=== PATIENT | female | born 1955 | race Caucasian/White ===

== ENCOUNTER 2019-01-01 17:47 | Observation (INO) ==
[2019-01-01 18:32] LABS: Basophils # (auto) 0.05 K/uL (0-0.2); Basophils % (auto) 1.1 %; Eosinophils # (auto) 0.23 K/uL (0-0.5); Eosinophils % (auto) 4.9 %; Hematocrit (blood only) 43.7 % (37-47); Hemoglobin 14.5 g/dL (12.0-16.0); Immature Granulocytes # (auto) 0.01 K/uL (0.00-0.02); Immature Granulocytes % (auto) 0.2 %; Lymphocytes # (auto) 1.02 K/uL (1.2-3.4); Lymphocytes % (auto) 21.6 %; Mean Corpuscular Hgb Conc 33.2 g/dL (32-36); Mean Corpuscular Volume 91.2 fL (80-100); Mean Platelet Volume 9.2 fL (7.4-10.4); Monocytes # (auto) 0.43 K/uL (0.11-0.59); Monocytes % (auto) 9.1 %; Neutrophils # (auto) 2.99 K/uL (1.4-6.5); Neutrophils % (auto) 63.1 %; Platelet Count 270 K/uL (130-400); RDW Coefficient of Variation 12.9 % (11.5-14.5); RDW Standard Deviation 43.1 fL (36.4-46.3); Red Blood Count 4.79 M/uL (4.2-5.4); White Blood Count 4.73 K/uL (4.8-10.8)
[2019-01-01 18:52] LABS: Albumin Level 3.8 gm/dl (3.4-5.0); BUN Creatinine Ratio 16.4 (10-20); Calcium 9.3 mg/dl (8.5-10.1); Creatinine Clr Calc Pharmacy 59.8 ml/min; Est GFR (African American) 79.4; Est GFR (Non-African American) 68.5
[2019-01-01 18:55] LABS: Albumin Globulin Ratio 1.1 (0.9-2); Bilirubin,Total 0.2 mg/dl (0.2-1); Globulin 3.3 gm/dl (2.5-4.0); Total Protein 7.1 gm/dl (6.4-8.2)
[2019-01-01] MEDS ORDERED: IOVERSOL 100ml IV PRN (20:53)
[2019-01-01 21:05] LABS: Appearance Urine Clear (Clear); Bacteria Urine Automated Negative (Negative); Bilirubin Urine Negative (Negative); Blood Urine Trace (Negative); Cast Urine Automated 0 /lpf (0-5); Color Urine Yellow; Glucose Urine UA Negative (Negative); Ketones Urine Negative (Negative); Leukocyte Esterase Urine Trace (Negative); Nitrite Urine Negative (Negative); Protein Urine Negative (Negative); RBC Urine Automated 0-4 /hpf (0-4); Specific Gravity Urine 1.013 (1.000-1.030); Urobilinogen Urine Negative (Negative); pH Urine 5.5 (4.5-7.5)
--- NOTE | 2019-01-01 21:19 | CT Scan Report ---
CT abd pelvis oral and IV con CT DOSE: 476.40 mGycm HISTORY: Flank pain rlq pain eval for appe TECHNIQUE: Multiaxial CT images of the abdomen and pelvis were performed following the use of intrave nous and oral contrast. A dose lowering technique was utilized adhering to the principles of ALARA. COMPARISON STUDY: None. FINDINGS: Lung bases are clear. The liver spleen and pancreas are unremarkable. Kidneys enhance unifo rmly with no evidence for hydronephrosis. Nonobstructive bowel pattern. Thickened appendix at its base at 8 mm tapering to 5 mm at its apex. Trace amount of periappendiceal infiltrative change. No evidence for abscess collection or obstructive change. Bladder is midline. Th ere are several calcified uterine fibroids. There is no free fluid within the pelvic cul-de-sac. IMPRESSION: 1. Thickened appendix at 8 mm with minimal periappendiceal infiltrative change. 2. This is highly suspect for appendicitis, with no evidence for abscess collection or obstructive ch dhruv. 3. If the appendix is not removed, endoscopic evaluation at a later date is recommended to exclude an y possibility of an underlying neoplastic appendiceal process. The above report was generated using voice recognition software. It may contain grammatical, syntax or spelling errors. Electronically signed by: Getachew Paiz M.D. 01/01/2019 9:18 PM
[2019-01-01] MEDS ORDERED: LIDOCAINE HCL 1% 20 ML VIAL ONE (22:02)
[2019-01-01] MEDS ORDERED: BACITRACIN OINT 15 GM TUBE ONE (22:02)
[2019-01-01] MEDS ORDERED: BUPIVACAINE 0.5 % 5 MG/1 ML MPF 30ML VIAL ONE (22:02)
--- NOTE | 2019-01-01 22:02 | Surgery Consultation ---
Date of Consultation January 01, 2019 Assessment & Plan (1) Acute appendicitis: pt is a 64 year-old female who presents to ER with one day history acute RLQ pain, CT scan-dx acute appendicitis, IMP: acute appendicitis Plan, I recommend to do laparoscopic appendectomy, possible open , D/W benefits, risks and alternatives of the surgery, the risks - infection, bleeding, injury bowel, IL, DVT, stroke, , pt understood, she agrees with [facility] surgery, I answered all questions, History of Present Illness History of Present Illness CC: abdominal pain HPI: pt is a 64 year -old female who presents to ER with one day history abdominal pain, with some nausea, no vomiting, the pain is located at RLQ,pt denies fever, no diarrhea, pt had CT scan at ER dx acute appendicitis. Allergies Allergy/AdvReac Type Severity Reaction Status Date / Time codeine AdvReac Severe NAUSEA & Verified 01/01/19 19:55 VOMITING Home Medications Home Medications Medication Instructions Recorded Confirmed Type Azelastine Hcl 1% 1 spray INTRANASAL BID 01/01/19 01/01/19 History albuterol sulfate [Ventolin HFA] 2 puff INHALATION Q4 PRN 01/01/19 01/01/19 History atorvastatin 10 mg PO DAILY 01/01/19 01/01/19 History dextroamphetamine-amphetamine 15 mg PO DAILY 01/01/19 01/01/19 History [Adderall] fexofenadine [Jing Allergy] 180 mg PO DAILY PRN 01/01/19 01/01/19 History lamotrigine [Lamictal] 100 mg PO DAILY 01/01/19 01/01/19 History lamotrigine [Lamictal] 200 mg PO DAILY 01/01/19 01/01/19 History levothyroxine 125 mcg PO DAILY 01/01/19 01/01/19 History mometasone-formoterol [Dulera] 2 puff INHALATION BID 01/01/19 01/01/19 History montelukast [Singulair] 10 mg PO DAILY 01/01/19 01/01/19 History venlafaxine [Effexor XR] 37.5 mg PO DAILY 01/01/19 01/01/19 History Patient History Medical History No significant past medical history Social History Feels Safe at Home: Yes Smoking Status: Never smoker Review of Systems Constitutional: as per Subjective / HPI Ear, Nose, Mouth, Throat: as per Subjective / HPI Respiratory: as per Subjective / HPI Cardiovascular: as per Subjective / HPI Gastrointestinal: as per Subjective / HPI Genitourinary: as per Subjective / HPI Integumentary: as per Subjective / HPI Neurologic: as per Subjective / HPI Psychiatric: as per Subjective / HPI Endocrine: as per Subjective / HPI hypothyroidism Allergy / Immunological: as per Subjective / HPI Physical Exam Constitutional: WD/WN, vitals as above well developed and well nourished ENMT: external ear and nose normal, oropharynx normal Neck: trachea midline, no thyromegaly Respiratory: normal respiratory effort, lungs clear to auscultation normal respiratory effort Cardiovascular: RRR, no murmur, no edema Rate/Rhythm: regular rate and regular rhythm Heart Sounds: normal S1 and normal S2 Gastrointestinal (Abdomen): soft, tenderness at RLQ, no rebound pain, BS + Musculoskeletal: no cyanosis or clubbing, extremities motor strength 5/5 Neurologic: patellar DTR's 2+ bilat, sensation intact Psychiatric: A+Ox3, euthymic affect Orientation: alert and oriented x 3 Lymphatic: no cervical or axillary lymphadenopathy Results & Data Vital Signs (Past 12 Hours) Vital Signs Temp Pulse Pulse Resp BP BP Pulse Ox 01/01/19 18:44 62 16 133/83 99 01/01/19 18:18 97 01/01/19 17:57 37.4 C 81 20 142/93 H 96 Laboratory Results Abnormal lab results 01/01/19 01/01/19 01/01/19 Range/Units 18:25 18:25 Unknown WBC 4.73 L (4.8-10.8) K/uL Lymph # (Auto) 1.02 L (1.2-3.4) K/uL AST 10 L (15-37) U/L Urine Blood Trace H (Negative) Ur Leukocyte Esterase Trace H (Negative) U Epithel Cells (Auto) 10-20 H (0-5) /lpf Diagnostic Findings CT abd pelvis oral and IV con CT DOSE: 476.40 mGycm HISTORY: Flank pain rlq pain eval for appe TECHNIQUE: Multiaxial CT images of the abdomen and pelvis were performed following the use of intravenous and oral contrast. A dose lowering technique was utilized adhering to the principles of ALARA. COMPARISON STUDY: None. FINDINGS: Lung bases are clear. The liver spleen and pancreas are unremarkable. Kidneys enhance uniformly with no evidence for hydronephrosis. Nonobstructive bowel pattern. Thickened appendix at its base at 8 mm tapering to 5 mm at its apex. Trace amount of periappendiceal infiltrative change. No evidence for abscess collection or obstructive change. Bladder is midline. There are several calcifie d uterine fibroids. There is no free fluid within the pelvic cul-de-sac. IMPRESSION: 1. Thickened appendix at 8 mm with minimal periappendiceal infiltrative change. 2. This is highly suspect for appendicitis, with no evidence for abscess collection or obstructive change. 3. If the appendix is not removed, endoscopic evaluation at a later date is recommended to exclude any possibility of an underlying neoplastic appendiceal process.
[2019-01-01] MEDS ORDERED: cefOXitin 2,000 MG/60 ML BAG IV STA (22:06)
--- NOTE | 2019-01-01 22:06 | History & Physical Bridge Note ---
Date of Service January 01, 2019 History & Physical Bridge Note I have examined the patient, reviewed the History & Physical and in the interval since the performance of the History & Physical I have noted the following changes of clinical significance: no changes noted
--- NOTE | 2019-01-01 22:19 | Anesthesiology Consultation ---
Date of Service January 01, 2019 Assessment & Plan (1) Encounter for pre-operative examination: Chart Review Chart Review: Acceptable Risk for Surgery and Patient NOT seen in Pre Admission Testing Consults Requested none ASA [id number] Proposed Anesthesia Anesthesia Type: General Risk / Benefits Reviewed With: PT / POA / Parent / Guardian, Accepts Plan and In formed Consent Obtained History Surgery Operation Date: 01/01/19 21:55 Proposed Procedures p Laparoscopic Appendectomy - Pool Asif MD Height/Weight Height: 5 ft 6 in Weight: 65.3 kg Allergies Allergy/AdvReac Type Severity Reaction Status Date / Time codeine AdvReac Severe NAUSEA & Verified 01/01/19 19:55 VOMITING Medications Home Medications Medication Instructions Recorded Confirmed Last Taken Azelastine Hcl 1% 1 spray INTRANASAL BID 01/01/19 01/01/19 Unknown albuterol sulfate [Ventolin HFA] 2 puff INHALATION Q4 PRN 01/01/19 01/01/19 Unknown atorvastatin 10 mg PO DAILY 01/01/19 01/01/19 Unknown dextroamphetamine-amphetamine 15 mg PO DAILY 01/01/19 01/01/19 Unknown [Adderall] fexofenadine [Jing Allergy] 180 mg PO DAILY PRN 01/01/19 01/01/19 Unknown lamotrigine [Lamictal] 100 mg PO DAILY 01/01/19 01/01/19 Unknown lamotrigine [Lamictal] 200 mg PO DAILY 01/01/19 01/01/19 Unknown levothyroxine 125 mcg PO DAILY 01/01/19 01/01/19 Unknown mometasone-formoterol [Dulera] 2 puff INHALATION BID 01/01/19 01/01/19 Unknown montelukast [Singulair] 10 mg PO DAILY 01/01/19 01/01/19 Unknown venlafaxine [Effexor XR] 37.5 mg PO DAILY 01/01/19 01/01/19 Unknown Active Medications Generic Name Dose Route Start Last Admin Trade Name Freq PRN Reason Stop Dose Admin Ioversol 90 ml 01/01/19 20:53 01/01/19 20:54 Optiray 320 100ml IV 01/05/19 20:52 90 ml ONCE PRN Administration Interaction Checking NPO Date Last Intake of Fluids: 01/01/19 Time Last Intake of Fluids: 19:30 Date Last Intake of Solids: 12/31/18 Time Last Intake of Solids: 12:00 Past Medical History Medical History ADHD Asthma Bipolar 1 disorder Hyperlipidemia Hypothyroid Past Surgical History Surgical History History of tonsillectomy Social History Smoking Status: Never smoker Review of Systems Patient denies active symptoms of GERD. Negative for nausea. Negative for chest pain or shortness of breath. Physical Exam Vital Signs Last Vital Signs Temp 37.4 C 01/01/19 17:57 Pulse 75 01/01/19 22:30 Resp 18 01/01/19 22:30 BP 142/92 H 01/01/19 22:30 Pulse Ox 97 01/01/19 22:30 Constitutional not obese ENMT Mouth: no TMJ abnormality and oral opening not small Thyromental Distance: < 3.5 Finger Breadths Mallampati Class: II Neck normal visual inspection; neck extension not limited Respiratory normal respiratory effort Auscultation: lungs clear to auscultation bilaterally Cardiovascular Rate/Rhythm: regular rate and regular rhythm Heart Sounds: no murmur Neurologic moves all extremities Motor/Sensory: no sensory deficit Psychiatric Orientation: alert and oriented x 3 Testing Laboratory Results 01/01/19 18:25 01/01/19 18:25 Urine Color Yellow 01/01/19 Unknown Urine Appearance Clear (Clear) 01/01/19 Unknown Urine pH 5.5 (4.5-7.5) 01/01/19 Unknown Ur Specific [place] 1.013 (1.000-1.030) 01/01/19 Unknown Urine Protein Negative (Negative) 01/01/19 Unknown Urine Glucose (UA) Negative (Negative) 01/01/19 Unknown Urine Ketones Negative (Negative) 01/01/19 Unknown Urine Nitrite Negative (Negative) 01/01/19 Unknown Ur Leukocyte Esterase Trace (Negative) H 01/01/19 Unknown Urine WBC (Auto) 1-5 /hpf (0-5) 01/01/19 Unknown Urine RBC (Auto) 0-4 /hpf (0-4) 01/01/19 Unknown U Hyaline Cast (Auto) 0 /lpf (0-5) 01/01/19 Unknown U Epithel Cells (Auto) 10-20 /lpf (0-5) H 01/01/19 Unknown Urine Bacteria (Auto) Negative (Negative) 01/01/19 Unknown Electrocardiogram Date: 01/01/19 Findings: + NSR @ (63) Low voltage QRS, Septal infarct - age undetermined
[2019-01-01] MEDS ORDERED: PROPOFOL IV EMULSION 10 MG/ML 20 ML VIAL IV ONE (22:25)
[2019-01-01] MEDS ORDERED: ROCURONIUM BROMIDE 10 MG/ML 5 ML VIAL ONE (22:25)
[2019-01-01] MEDS ORDERED: ONDANSETRON INJ 2 MG/ML 2 ML VIAL ONE (22:25)
[2019-01-01] MEDS ORDERED: DEXAMETHASONE SOD INJ 4 MG/ML VIAL ONE (22:25)
[2019-01-01] MEDS ORDERED: fentaNYL citrate 100 MCG/2 ML VIAL ONE (22:25)
[2019-01-01] MEDS ORDERED: LIDOCAINE HCL 2% 2 ML VIAL/AMP(20MG/ML) INFIL ONE (22:25)
[2019-01-01] MEDS ORDERED: SUCCINYLCHOLINE CHLORIDE 20 MG/ML 10 ML VIAL ONE (22:25)
[2019-01-01] MEDS ORDERED: MIDAZOLAM HCL 1 MG/ML 2ML VIAL ONE (22:26)
[2019-01-01] MEDS ORDERED: ATROPINE SULFATE 0.1 MG/ML 10ML SYR IV PRN (22:38)
[2019-01-01] MEDS ORDERED: fentaNYL citrate 100 MCG/2 ML VIAL IV PRN (22:38)
[2019-01-01] MEDS ORDERED: ONDANSETRON INJ 2 MG/ML 2 ML VIAL IV PRN (22:38)
[2019-01-01] MEDS ORDERED: ePHEDrine sulfate 50 MG/ML AMP IV PRN (22:38)
[2019-01-01] MEDS ORDERED: NEOSTIGMINE METHYLSULFATE 5 MG/5 ML SYR ONE (23:49)
[2019-01-01] MEDS ORDERED: GLYCOPYRROLATE 0.2 MG/ML VIAL ONE (23:49)
[2019-01-01] MEDS ORDERED: ePHEDrine sulfate 50 MG/ML SYR ONE (23:49)
--- NOTE | 2019-01-01 23:52 | Emergency Department Note ---
Entered by Kala Leos acting as a scribe for History of Present Illness General Chief complaint: Abdominal Pain Stated complaint: STAT CTS - RLQ ABDOMINAL PAIN Source: patient History of Present Illness Onset (ago): day(s) 1 Location: abdomen (right lower ) Radiation: non-radiation Pain Consistency: + intermittent Maximum Pain Intensity: 6 Quality: + sharp Associated symptoms: + other (negative black or bloody stools; negative urinary problems; positive blood in urine); no fever/chills and no nausea/vomiting The patient is a 64 year old female who presents to the Emergency Room with complaints of worsening right lower abdominal pain that began yesterday. The patient describes her pain as sharp, and denies radiation. The patient states that her pain began as a general discomfort and has moved to the right lower quadrant and is now sharp. The patient denies fever, vomiting, black or bloody stools, and urinary problems. The patient states that she was at the [facility] just prior to arrival, and states that they found some blood in her urine. The patient states that she still has her appendix. Home Medications Home Medications Medication Instructions Recorded Confirmed Type Azelastine Hcl 1% 1 spray INTRANASAL BID 01/01/19 01/01/19 History albuterol sulfate [Ventolin HFA] 2 puff INHALATION Q4 PRN 01/01/19 01/01/19 History atorvastatin 10 mg PO DAILY 01/01/19 01/01/19 History dextroamphetamine-amphetamine 15 mg PO DAILY 01/01/19 01/01/19 History [Adderall] fexofenadine [Jing Allergy] 180 mg PO DAILY PRN 01/01/19 01/01/19 History lamotrigine [Lamictal] 100 mg PO DAILY 01/01/19 01/01/19 History lamotrigine [Lamictal] 200 mg PO DAILY 01/01/19 01/01/19 History levothyroxine 125 mcg PO DAILY 01/01/19 01/01/19 History mometasone-formoterol [Dulera] 2 puff INHALATION BID 01/01/19 01/01/19 History montelukast [Singulair] 10 mg PO DAILY 01/01/19 01/01/19 History venlafaxine [Effexor XR] 37.5 mg PO DAILY 01/01/19 01/01/19 History Allergies Allergy/AdvReac Type Severity Reaction Status Date / Time codeine AdvReac Severe NAUSEA & Verified 01/01/19 19:55 VOMITING Past Med/Surg History Medical History ADHD Asthma Bipolar 1 disorder Hyperlipidemia Hypothyroid Surgical History History of tonsillectomy Social History Feels Safe at Home: Yes Smoking Status: Never smoker Review of Systems See HPI for pertinent positives & negatives. and A total of 10 systems reviewed and were otherwise negative Physical Exam Vital Signs Vital Signs - 24 hr 01/01/19 17:57 01/01/19 18:18 01/01/19 18:44 Temperature 37.4 C Temperature Source Oral Sepsis Recent Fever Within 48 Hours No Sepsis Action Taken by Nursing No Action Required Pulse Rate 81 Pulse Rate [Left Finger] 62 Pulse Rhythm Regular Pulse Rhythm [Left Finger] Regular Pulse Strength Normal Pulse Strength [Left Finger] Normal Respiratory Rate 20 16 Respiratory Effort / Characteristics Non-Labored Spontaneous Non-Labored Spontaneous Respiratory Depth Normal Normal Respiratory Pattern Regular Regular Blood Pressure 142/93 H Blood Pressure [Left Arm] 133/83 Blood Pressure Mean 109 Blood Pressure Mean [Left Arm] 99 Blood Pressure Position Sitting Blood Pressure Position [Left Arm] Lying Pulse Oximetry 96 97 99 Oxygen Delivery Method Room Air Room Air Room Air 01/01/19 22:30 Temperature Temperature Source Sepsis Recent Fever Within 48 Hours Sepsis Action Taken by Nursing Pulse Rate 75 Pulse Rate [Left Finger] Pulse Rhythm Pulse Rhythm [Left Finger] Pulse Strength Pulse Strength [Left Finger] Respiratory Rate 18 Respiratory Effort / Characteristics Respiratory Depth Respiratory Pattern Blood Pressure 142/92 H Blood Pressure [Left Arm] Blood Pressure Mean Blood Pressure Mean [Left Arm] Blood Pressure Position Blood Pressure Position [Left Arm] Pulse Oximetry 97 Oxygen Delivery Method Room Air Constitutional: Vital signs reviewed. Eyes: Pupils are equal round reactive to light. Conjunctiva are noninjected. ENT: Pharynx is clear without erythema or exudate. Mucous membranes are moist. Neck supple without meningeal signs. Respiratory: Clear to auscultation bilaterally. Breath sounds are equal bilaterally. Cardiovascular: Regular rate and rhythm. No rubs or gallops. GI: Soft, nondistended. Right lower quadrant tenderness, no guarding. Bowel sounds are present. Musculoskeletal: No peripheral edema. No CVA tenderness. Integumentary: No cyanosis. Neurological: The patient is awake and alert. No focal deficits. Psychiatric: Normal affect. Course 1804: Past medical records reviewed. The patient was evaluated in room B4B. A complete history and physical exam was performed. 1946: I updated the patient on her test results. We are waiting for the CT. 2135: I updated the patient on her test results. I discussed the case with Dr. Camejo who will come evaluate the patient. Consultations Consultation #1: I discussed the case with Dr. Camejo who will come evaluate the patient. Time: 21:36 Administered Medications Ioversol (Optiray 320 100ml) 90 ml IV ONCE PRN PRN Reason: Interaction Checking Stop: 01/05/19 20:52 Last Admin: 01/01/19 20:54 Dose: 90 ml Documented by: [id number] Discontinued Medications Cefoxitin Sodium (Mefoxin) 2,000 mg in 60 mls @ 100 mls/hr IV NOW STA Stop: 01/01/19 22:41 Last Admin: 01/01/19 22:21 Dose: 100 mls/hr Documented by: [id number] Medical Decision Making Differential Diagnosis Differential diagnoses include appendicitis, perforation, abscess, kidney stone, colitis, mass, and others were considered. Medical Records Attestation: I reviewed the patient's medical records. (The patient has no recent pertinent visits. ) Home Medications Current Medication List: was personally reviewed by me Laboratory Data Attestation: I reviewed the patient's lab results. Result diagrams: 01/01/19 18:25 01/01/19 18:25 Lab Results 01/01/19 01/01/19 01/01/19 Range/Units 18:25 18:25 Unknown WBC 4.73 L (4.8-10.8) K/uL RBC 4.79 (4.2-5.4) M/uL Hgb 14.5 (12.0-16.0) g/dL Hct 43.7 (37-47) % MCV 91.2 (80-100) fL MCH 30.3 (25-34) pg MCHC 33.2 (32-36) g/dL RDW Std Deviation 43.1 (36.4-46.3) fL RDW Coeff of Juan 12.9 (11.5-14.5) % Plt Count 270 (130-400) K/uL MPV 9.2 (7.4-10.4) fL Immature Gran % (Auto) 0.2 % Neut % (Auto) 63.1 % Lymph % (Auto) 21.6 % [place] % (Auto) 9.1 % Eos % (Auto) 4.9 % Baso % (Auto) 1.1 % Immature Gran # (Auto) 0.01 (0.00-0.02) K/uL Neut # (Auto) 2.99 (1.4-6.5) K/uL Lymph # (Auto) 1.02 L (1.2-3.4) K/uL [place] # (Auto) 0.43 (0.11-0.59) K/uL Eos # (Auto) 0.23 (0-0.5) K/uL Baso # (Auto) 0.05 (0-0.2) K/uL Sodium 140 (136-145) mmol/L Potassium 4.0 (3.5-5.1) mmol/L Chloride 105 (98-107) mmol/L Carbon Dioxide 27 (21-32) mmol/L Anion Gap 8.0 (3-11) BUN 15 (7-18) mg/dl Creatinine 0.89 (0.6-1.2) mg/dl Est Cr Clr Drug Dosing 59.8 ml/min Est GFR ( Amer) 79.4 Est GFR (Non-Af Amer) 68.5 BUN/Creatinine Ratio 16.4 (10-20) Glucose 95 (70-99) mg/dl Calcium 9.3 (8.5-10.1) mg/dl Total Bilirubin 0.2 (0.2-1) mg/dl AST 10 L (15-37) U/L ALT 17 (12-78) U/L Alkaline Phosphatase 104 (45-117) U/L Total Protein 7.1 (6.4-8.2) gm/dl Albumin 3.8 (3.4-5.0) gm/dl Globulin 3.3 (2.5-4.0) gm/dl Albumin/Globulin Ratio 1.1 (0.9-2) Lipase 89 (73-393) U/L Urine Color Yellow Urine Appearance Clear (Clear) Urine pH 5.5 (4.5-7.5) Ur Specific [place] 1.013 (1.000-1.030) Urine Protein Negative (Negative) Urine Glucose (UA) Negative (Negative) Urine Ketones Negative (Negative) Urine Blood Trace H (Negative) Urine Nitrite Negative (Negative) Urine Bilirubin Negative (Negative) Urine Urobilinogen Negative (Negative) Ur Leukocyte Esterase Trace H (Negative) Urine WBC (Auto) 1-5 (0-5) /hpf Urine RBC (Auto) 0-4 (0-4) /hpf U Hyaline Cast (Auto) 0 (0-5) /lpf U Epithel Cells (Auto) 10-20 H (0-5) /lpf Urine Bacteria (Auto) Negative (Negative) Imaging Data Radiologist's Impression: Radiology results as stated below per my review and the radiologist's interpretation: CT abd pelvis oral and IV con CT DOSE: 476.40 mGycm HISTORY: Flank pain rlq pain eval for appe TECHNIQUE: Multiaxial CT images of the abdomen and pelvis were performed following the use of intravenous and oral contrast. A dose lowering technique was utilized adhering to the principles of ALARA. COMPARISON STUDY: None. FINDINGS: Lung bases are clear. The liver spleen and pancreas are unremarkable. Kidneys enhance uniformly with no evidence for hydronephrosis. Nonobstructive bowel pattern. Thickened appendix at its base at 8 mm tapering to 5 mm at its apex. Trace amount of periappendiceal infiltrative change. No evidence for abscess collecti on or obstructive change. Bladder is midline. There are several calcified uterine fibroids. There is no free fluid within the pelvic cul-de-sac. IMPRESSION: 1. Thickened appendix at 8 mm with minimal periappendiceal infiltrative change. 2. This is highly suspect for appendicitis, with no evidence for abscess collection or obstructive change. 3. If the appendix is not removed, endoscopic evaluation at a later date is recommended to exclude any possibility of an underlying neoplastic appendiceal process. The above report was generated using voice recognition software. It may contain grammatical, syntax or spelling errors. Electronically signed by: Getachew Paiz M.D. 01/01/2019 9:18 PM Blood Pressure Blood Pressure Findings: Normal blood pressure MDM Narrative I did evaluate the patient as noted above. The patient is presenting with a history and exam concerning for acute appendicitis. She declined any pain medication. IV access was established. I did order a urine analysis. There is no evidence of infection. I did order and review the patient's blood work as noted in the electronic medical record. Her white count is 4.7. LFTs and lipase are unremarkable. I did order a CT of the abdomen and pelvis. I did review the images myself as well as the radiology report as described above. The patient appears to have an acute appendicitis. I did discuss the test results with her. I did discuss the case with the case managers and general surgeon who came to the ED and evaluated her. He took her to the OR for appendectomy. Impression & Plan Acute appendicitis Discharge Plan Visit Data *Final* Discharge Date/Time: 01/01/19 22:30 Chief Complaint: Abdominal Pain Stated Complaint: STAT CTS - RLQ ABDOMINAL PAIN ED Provider: Sandip Long Discharge Problem: Acute appendicitis Patient Disposition: Admitted As Inpatient Discharge Instructions Interventions: ED Discharge Assessment Last Done: 01/01/19 22:30 Discharge Problem: Acute appendicitis Qualifiers: Acute appendicitis type: unspecified acute appendicitis type Qualified Code(s): K35.80 - Unspecified acute appendicitis The scribe's documentation has been prepared under my direction and personally reviewed by me in its entirety. I confirm that the note above accurately reflects all work, treatment, procedures, and medical decision making performed by me.
--- NOTE | 2019-01-01 23:57 | Post Operative Brief Note ---
Immediate Post Op Note v1 Date of Surgery January 01, 2019 Pre & Post Diagnosis Operation Date: 01/01/19 21:55 Pre-Op Diagnosis: Acute Appendicitis Post-Op Diagnosis: Acute Appendicitis Procedure Operation Date: 01/01/19 21:55 Actual Procedures p Laparoscopic Appendectomy(Not Applicable) - Pool Asif MD Surgeon Pool Asif MD Theatre Director surgical physician assistant Estimated Blood Loss 5 Findings Consistent with Post-Op Diagnosis acute appendicitis Fluids 700ml Specimens appendix Anesthesia Type General Complications none Disposition Accompanied Patient To Recovery: Yes Disposition: Recovery Room Overlapping Procedure I was immediately available: during the entire case.
[2019-01-02] MEDS ORDERED: ONDANSETRON INJ 2 MG/ML 2 ML VIAL IV PRN
[2019-01-02] MEDS ORDERED: HYDROmorphone INJ 0.5 MG/0.5 ML SYR IV PRN (00:01)
[2019-01-02] MEDS ORDERED: OXYCODONE/ACETAMINOPHEN 5mg/325mg TAB PO PRN (00:01)
[2019-01-02] MEDS ORDERED: LACTATED RINGER'S 1,000 ML IV SCH (00:15)
--- NOTE | 2019-01-02 00:42 | Operative Report ---
DATE OF OPERATION: 01/01/2019 PREOPERATIVE DIAGNOSIS: Acute appendicitis. POSTOPERATIVE DIAGNOSIS: Acute appendicitis. PROCEDURE: Laparoscopic appendectomy. SURGEON: Pool Asif MD ANESTHESIA: General. ESTIMATED BLOOD LOSS: About 5 mL. FINDINGS: Acute appendicitis. COMPLICATIONS: None. INDICATIONS FOR THE PROCEDURE: This is a 64-year-old female who presented to ED with 1-day history of right lower quadrant pain. The patient had a CT scan diagnosis of acute appendicitis. I recommended to do the laparoscopic appendectomy, possible open. I did talk to the patient about the benefits, the risks, alternate procedures. I indicated the risks may include but not limited such as bleeding, infection, injury to the bowel, abscess, myocardial infarction, DVT, stroke, even . The patient understands. She signed informed consent and I answered all questions. DETAILS OF PROCEDURE: We brought in the patient to the OR, put the patient in the supine position. The patient received SCDs on bilateral legs to prevent DVT. Also patient received 2 grams cefoxitin IV for prophylactic antibiotic. The patient received general anesthesia without difficulty. The abdomen was prepped and draped in routine sterile fashion. After time-out, I injected local anesthesia by using 1% lidocaine mixed with 0.5% Marcaine just above umbilicus. Then I made a small incision just above umbilicus, opened fascia and opened peritoneum under direct vision, put a Adeel trocar in and connected to CO2 to create pneumoperitoneum. Flow rate at 6 liter per minute. Pressure not more than 14 mmHg. Once we got a nice pneumoperitoneum, we put the camera in, looked around the abdomen. It showed normal finding on the small bowel, large bowel; however, the appendix showed a significantly enlarged inflammation, confirmed diagnosis of acute appendicitis. Then we put another two 5 mm trocars on the left lower quadrant area. Then we used harmonic to take down appendiceal, rechecked, no active bleeding. Then, we used a 45 mm Endo-ALVA stapler for transection on the base of the appendix, rechecked, the staple line intact, no active bleeding, no leak. Then we removed the appendix through the catch bag. Then we reinserted Adeel trocar in, connected to CO2 to create pneumoperitoneum. I again looked around the abdomen. The staple line intact and no leak, no active bleeding. Then we removed all trocar under direct vision. No active bleeding from the trocar sites. Pneumoperitoneum was released. Then I closed the umbilical incision, fascial layer by using #1 Vicryl [id number] x2, closed subcutaneous layer by using 2-0 Vicryl interruptedly, closed skin by using 4-0 Vicryl continuous running, closed another two 5 mm trocar sites skin only by using 4-0 Vicryl. Then we put the dressing on. The patient tolerated the procedure well. All instrument, needle, and sponge counts correct x2 at the end of case. The patient transported to recovery room in stable condition. The specimen was sent to pathology. I attest to the content of the Intraoperative Record and any orders documented therein. Any exception s are noted below.
--- NOTE | 2019-01-02 00:51 | Anesthesiology Progress Note ---
Date of Service January 02, 2019 Anesthesia Post Procedure Vital Signs Vital Signs: Temp Pulse Pulse Resp BP BP Pulse Ox 01/02/19 00:45 66 130/82 100 01/02/19 00:41 68 122/74 99 01/02/19 00:40 36.7 C 63 100 01/02/19 00:35 69 137/82 99 01/02/19 00:32 71 87 L 01/02/19 00:30 71 131/79 100 01/02/19 00:25 36.8 C 70 16 135/78 100 01/01/19 22:30 75 18 142/92 H 97 01/01/19 18:44 62 16 133/83 99 01/01/19 18:18 97 01/01/19 17:57 37.4 C 81 20 142/93 H 96 Pain Intensity Right Lower Abdomen: Pain Intensity: 3 Transfer of Care Handoff Completed per policy Notes Mental Status: alert / awake / arousable and participated in evaluation Patient Amnestic to Procedure: Yes Nausea / Vomiting: adequately controlled Pain: adequately controlled Airway Patency, RR, SpO2: stable & adequate BP & HR: stable & adequate Hydration State: stable & adequate Anesthetic Complications: no major complications apparent and Pt Satisfied with anesthetic care
[2019-01-02] MEDS ORDERED: ALBUTEROL HFA 8 GM INHALER INH PRN (01:16)
[2019-01-02] MEDS ORDERED: FEXOFENADINE HCL 180 MG TAB PO PRN (01:16)
[2019-01-02 04:15] VITALS: O2SAT 91
[2019-01-02] MEDS ORDERED: LEVOTHYROXINE SODIUM 125 MCG TABLET PO SCH (06:30)
[2019-01-02 06:58] VITALS: PULSE 62; TEMP 98.4
[2019-01-02] MEDS ORDERED: AMPHETAMINE ASP/SULF/DEXTRAMPH 10 MG TAB PO SCH (07:00)
[2019-01-02] MEDS ORDERED: AZELASTINE~ORDER AWAITING ACTION SCH (08:00)
[2019-01-02] MEDS ORDERED: DULERA~ORDER AWAITING ACTION SCH (08:00)
[2019-01-02] MEDS ORDERED: lamoTRIgine 100 MG TAB PO SCH (09:00)
[2019-01-02] MEDS ORDERED: MONTELUKAST SODIUM 10 MG TABLET PO SCH (09:00)
[2019-01-02] MEDS ORDERED: VENLAFAXINE HCL XR 37.5 MG CAPXR PO SCH (09:00)
[2019-01-02] MEDS ORDERED: lamoTRIgine 25 MG TAB PO SCH (09:00)
[2019-01-02] MEDS ORDERED: ATORVASTATIN 10 MG TAB PO SCH (09:00)
--- NOTE | 2019-01-02 10:19 | Surgery Progress Note ---
Date of Service pt is doing fine, she tolerated diet, no nausea, no vomiting, January 02, 2019 Assessment & Plan (1) Acute appendicitis: pt is a 64 year-old female who presents to ER with one day history acute RLQ pain, CT scan-dx acute appendicitis, IMP: acute appendicitis Plan, I recommend to do laparoscopic appendectomy, possible open , D/W benefits, risks and alternatives of the surgery, the risks - infection, bleeding, injury bowel, [place], DVT, stroke, , pt understood, she agrees with [facility] surgery, I answered all questions, 01/02/2019 10:18am doing fine, pt wants to go home today, the post-op care instruction was given, F/U 1-2 weeks, Physical Exam Constitutional: WD/WN, vitals as above well developed and well nourished ENMT: external ear and nose normal, oropharynx normal Neck: trachea midline, no thyromegaly Respiratory: normal respiratory effort, lungs clear to auscultation normal respiratory effort Cardiovascular: RRR, no murmur, no edema Rate/Rhythm: regular rate and regular rhythm Heart Sounds: normal S1 and normal S2 Gastrointestinal (Abdomen): normal bowel sounds, soft, nontender, no hepatosplenomegaly Percussion/Palpation: abdomen soft NT, ND, all incisions intact, no redness, Musculoskeletal: no cyanosis or clubbing, extremities motor strength 5/5 Neurologic: patellar DTR's 2+ bilat, sensation intact Psychiatric: A+Ox3, euthymic affect Orientation: alert and oriented x 3 Lymphatic: no cervical or axillary lymphadenopathy Results & Data Vital Signs (Past 12 Hours) Vital Signs Temp Pulse Pulse Resp BP BP Pulse Ox 01/02/19 06:56 36.9 C 62 16 94/58 L 91 01/02/19 04:14 36.7 C 60 14 101/58 L 91 01/02/19 03:05 36.7 C 67 14 107/66 93 01/02/19 02:06 36.4 C L 58 L 14 116/70 95 01/02/19 01:35 36.4 C L 64 15 122/71 93 01/02/19 01:05 36.5 C 58 L 16 130/78 96 01/02/19 00:50 36.9 C 64 128/73 100 01/02/19 00:45 66 130/82 100 01/02/19 00:41 68 122/74 99 01/02/19 00:40 36.7 C 63 100 01/02/19 00:35 69 137/82 99 01/02/19 00:32 71 87 L 01/02/19 00:30 71 131/79 100 01/02/19 00:25 36.8 C 70 16 135/78 100 01/01/19 22:30 75 18 142/92 H 97 Laboratory Results Abnormal lab results 01/01/19 01/01/19 01/01/19 Range/Units 18:25 18:25 Unknown WBC 4.73 L (4.8-10.8) K/uL Lymph # (Auto) 1.02 L (1.2-3.4) K/uL AST 10 L (15-37) U/L Urine Blood Trace H (Negative) Ur Leukocyte Esterase Trace H (Negative) U Epithel Cells (Auto) 10-20 H (0-5) /lpf (1) Acute appendicitis Acute appendicitis type: unspecified acute appendicitis type Qualified Code(s): K35.80 - Unspecified acute appendicitis
[2019-01-02 10:26] VITALS: BP 133/83
--- NOTE | 2019-01-03 00:29 | Discharge Summary ---
DATE OF ADMISSION: 01/01/2019 DATE OF DISCHARGE: 01/02/2019 ADMITTING DIAGNOSIS: Acute appendicitis. DISCHARGE DIAGNOSIS: Acute appendicitis. OPERATION: Laparoscopic appendectomy. SURGEON: Pool Asif MD DETAILS OF DISCHARGE SUMMARY: This is a 64-year-old female who presented to ED with 1 day history of abdominal pain. The patient had a CT scan diagnosis of acute appendicitis. We took the patient to the OR. We did a laparoscopic appendectomy. The patient tolerated the procedure well and later on the patient transferred to her regular floor room and the patient is doing fine. She tolerated a clear diet and no nausea, no vomiting and no significant abdominal pain. PHYSICAL EXAMINATION: VITAL SIGNS: Temperature is 36.9, heart rate is 62, respiratory rate 16, blood pressure 94/58, O2 saturation 91% on room air. GENERAL: The patient is alert, awake, oriented x3. HEENT: With normal limitation. NEUROLOGIC: Exam intact. NECK: No JVD. CHEST: Bilateral lung sounds clear. HEART: Normal S1, S2. No murmur. ABDOMEN: Soft, no tenderness, nondistended. All dressings intact. No redness. EXTREMITIES: No edema. PLAN: The patient wanted to go home today. I gave patient postop care instruction. The patient understands. I will follow up the patient in 1-2 weeks.
== END 2019-01-02 12:00 | disposition home or self-care (01) ==
LOC: ED 17:47 → OR 22:30 → 3W 22:30